=== PATIENT | male | born 2005 | race Caucasian/White ===

== ENCOUNTER 2024-10-10 18:45 | Emergency (ER) | payer OTHER ==
[~2024-10-10] VITALS: Ht 180.3 cm; Wt 63.5 kg
[2024-10-10] MEDS ORDERED: LEVETIRACETAM500 M1 PO (18:59)
[2024-10-10] MEDS ORDERED: OXCARBAZEPINE150 MG PO (19:00)
[2024-10-10] MEDS ORDERED: SODIUM CHLORIDE 0.9% 1,000 ML IV PRN (19:15)
[2024-10-10 19:22] LABS: BASOPHILS 0.3 % (0-2); EOSINOPHILS 0.1 % (0-6); HEMATOCRIT 47.1 % (35.0-50.0); HEMOGLOBIN 16.4 g/dL (12.0-18.0); LYMPHOCYTES 21.1 % (24-44); MCH 32.6 (27-36); MCHC 34.8 g/dl (30-36); MCV 93.8 fl (81-99); MONOCYTES 5.1 % (0-12); NEUTROPHILS 73.4 % (39-80); PLATELET COUNT 234 K/uL (140-440); RBC 5.02 M/ul (4.3-5.7); RDW 13.1 (10.5-15.0)
[2024-10-10 19:40] LABS: ALBUMIN 4.2 g/dL (3.4-5.0); ALBUMIN/GLOBULIN RATIO 1.45 (1.1-2.4); ANION GAP 15.3 (7-21); BILIRUBIN, TOTAL 0.4 mg/dL (0.2-1.0); BUN/CREATININE RATIO 8.79 (6.0-28.6); CALCIUM 8.3 mg/dL (8.5-10.1); CREATININE, SERUM 0.91 mg/dL (0.70-1.30); POTASSIUM 3.3 mmol/L (3.5-5.1); PROTEIN, TOTAL 7.1 g/dL (6.4-8.2)
[2024-10-10 19:49] LABS: ACETAMINOPHEN 0 ug/mL (10-30); SALICYLATE 3.2 mg/dL (2.8-20.0); TSH, 3RD GENERATION 0.178 uIU/mL (0.358-3.740)
[2024-10-10 20:13] LABS: BILIRUBIN, URINE NEGATIVE (negative); BLOOD/HGB, URINE NEGATIVE (Negative); KETONE, URINE NEGATIVE (Negative); LEUK ESTERASE, URINE NEGATIVE (negative); NITRITE, URINE NEGATIVE (negative); PH, URINE 5.5 (5-7)
[2024-10-10 20:27] LABS: AMPHETAMINES, URINE NEGATIVE (NEGATIVE); BARBITURATES, URINE NEGATIVE (NEGATIVE); BENZODIAZEPINE, URINE NEGATIVE (NEGATIVE); BUPRENORPHINE, URINE NEGATIVE (NEGATIVE); CANNABINOID, URINE POSITIVE (NEGATIVE); COCAINE, URINE NEGATIVE (NEGATIVE); ECSTASY, URINE NEGATIVE (NEGATIVE); FENTANYL, URINE NEGATIVE (NEGATIVE); METHADONE, URINE NEGATIVE (NEGATIVE); OPIATES, URINE NEGATIVE (NEGATIVE); OXYCODONE, URINE NEGATIVE (NEGATIVE); PHENCYCLIDINE, URINE NEGATIVE (NEGATIVE)
[2024-10-11 01:40] VITALS: BP 141/92
== END 2024-10-11 01:42 | disposition home or self-care (01) ==
LOC: ED 18:45
PROVIDERS: Internal Medicine
DX: R45.851 Suicidal ideations (principal); F10.129 Alcohol abuse with intoxication, unspecified; Z79.899 Other long term (current) drug therapy
CPT/HCPCS: 36415; 80053; 80307; 81003; 84443; 85025; 99285; G0480; J7030

== ENCOUNTER 2024-11-08 22:04 | Emergency (ER) | payer OTHER ==
[~2024-11-08] VITALS: Ht 180.3 cm; Wt 62.0 kg
[~2024-11-08 22:04] MED LIST: LEVETIRACETAM500 M1 PO; OXCARBAZEPINE150 MG PO
--- OUTSIDE RECORDS SUMMARY | 2024-11-08 22:11 | XMS ---
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 - 2 Visits in 30 Days CARE PROVIDERS [facility] Current PHONE: [phone] Palomo has no Care Guidelines for this patient. E.DAmada VISIT COUNT (12 MO.) [address] [place] [id number] Tejinder Smith TOTAL 3 NOTE: Visits indicate total known visits. 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
[2024-11-08 22:42] LABS: BASOPHILS 0.3 % (0.2-1.2); EOSINOPHILS 0.1 % (0.8-7.0); HEMATOCRIT 40.6 % (40.1-51.0); HEMOGLOBIN 14.4 g/dL (13.7-17.5); LYMPHOCYTES 12.9 % (21.8-53.1); MCH 32.7 PG (25.7-32.2); MCHC 35.5 g/dL (32.3-36.5); MCV 92.3 fL (79.0-92.2); MONOCYTES 11.1 % (5.3-12.2); NEUTROPHILS 75.3 % (34.0-67.9); PLATELET COUNT 189 K/uL (163-337)
[2024-11-08] MEDS ORDERED: levETIRAcetam 500 MG TAB PO ONE (22:45)
[2024-11-08] MEDS ORDERED: FAMOTIDINE 20 MG/ 2 ML VIAL IV ONE (22:45)
[2024-11-08 23:00] LABS: ALBUMIN 3.5 g/dL (3.4-5.0); ALCOHOL, MEDICAL <3 ng/dL (<3); ALKALINE PHOSPHATASE 95 U/L (46-116); ALT (SGPT) 23 U/L (14-59); ANION GAP 11.4 (7-21); AST (SGOT) 16 U/L (15-37); BILIRUBIN, TOTAL 0.3 mg/dL (0.2-1.0); BUN/CREATININE RATIO 12.65 (6.0-28.6); CALCIUM 8.9 mg/dL (8.5-10.1); CARBON DIOXIDE 28 mmol/L (21-32); CHLORIDE 104 mmol/L (98-107); CREATININE, SERUM 0.79 mg/dL (0.70-1.30); GLOMERULAR FILTRATION RATE,EST 130 mL/min (>60); MAGNESIUM 1.7 mg/dL (1.8-2.4); POTASSIUM 3.4 mmol/L (3.5-5.1); UREA NITROGEN 10 mg/dL (7-18)
[2024-11-08] MEDS ORDERED: LACTATED RINGER'S 1,000 ML IV ONE (23:00)
[2024-11-09 00:13] LABS: BILIRUBIN, URINE NEGATIVE (negative); BLOOD/HGB, URINE NEGATIVE (Negative); KETONE, URINE SMALL (Negative); LEUK ESTERASE, URINE NEGATIVE (negative); NITRITE, URINE NEGATIVE (negative)
[2024-11-09 00:28] LABS: AMPHETAMINES, URINE NEGATIVE (NEGATIVE); BARBITURATES, URINE NEGATIVE (NEGATIVE); BENZODIAZEPINE, URINE NEGATIVE (NEGATIVE); BUPRENORPHINE, URINE NEGATIVE (NEGATIVE); CANNABINOID, URINE POSITIVE (NEGATIVE); COCAINE, URINE NEGATIVE (NEGATIVE); ECSTASY, URINE NEGATIVE (NEGATIVE); FENTANYL, URINE NEGATIVE (NEGATIVE); METHADONE, URINE NEGATIVE (NEGATIVE); OPIATES, URINE NEGATIVE (NEGATIVE); OXYCODONE, URINE NEGATIVE (NEGATIVE); PHENCYCLIDINE, URINE NEGATIVE (NEGATIVE)
[2024-11-09] MEDS ORDERED: ONDANSETRON 4 MG HOME.PACK SL ONE (01:45)
[2024-11-09 02:36] VITALS: BP 118/77
[2024-11-11 14:26] LABS: KEPPRA (LEVETIRACETAM) <2 ug/mL (10-40)
== END 2024-11-09 02:36 | disposition home or self-care (01) ==
LOC: ED 22:04
PROVIDERS: Internal Medicine
DX: G40.909 Epilepsy, unspecified, not intractable, without status epilepticus (principal)
CPT/HCPCS: 36415; 80053; 80177; 80307; 81003; 83735; 85025; 96374; 99284-25; A9270; G0480; J7121